=== PATIENT | male | born 1955 ===

== ENCOUNTER 2024-06-29 16:00 | Inpatient (IN) | payer OTHER ==
[~2024-06-29] VITALS: Ht 182.9 cm; Wt 115.0 kg
[2024-06-29] MEDS: ROCURONIUM BROMIDE 10 MG/ML 5 ML VIAL IVP ONE (16:10)
[2024-06-29] MEDS: ETOMIDATE 2 MG/ML 10 ML VIAL IVP ONE (16:10)
[2024-06-29 16:12] VITALS: PULSE 110; RESP 20; O2SAT 86
[2024-06-29] MEDS ORDERED: 0.9% SODIUM CHLORIDE 10 ML SYRINGE IVP PRN (16:15)
[2024-06-29 16:35] LABS: BASOPHILS % (AUTO) 0.3 % (0.0-2.0); EOSINOPHILS % (AUTO) 19.6 % (1.0-6.0); HEMATOCRIT 37.8 % (41-53); LYMPHOCYTES # (AUTO) 0.9 K/uL (1.0-4.8); LYMPHOCYTES % (AUTO) 15.5 % (22.0-44.0); MEAN CORPUSCULAR HEMOGLOBIN 28.9 pg (26.0-34.0); MEAN CORPUSCULAR HGB CONC 31.8 G/dL (31.0-37.0); MEAN CORPUSCULAR VOLUME 91 fL (80-100); MONOCYTES # (AUTO) 0.4 K/uL (0.1-1.0); MONOCYTES % (AUTO) 6.8 % (2.0-9.0); NEUTROPHILS # (AUTO) 3.3 K/uL (1.8-7.7); NEUTROPHILS % (AUTO) 57.8 % (40.0-70.0); PLATELET COUNT (AUTO) 290 K/uL (150-450); RED BLOOD CELL COUNT(AUTO) 4.16 MIL/uL (4.50-5.90); RED CELL DISTRIBUTION WIDTH 16.2 % (11.5-14.5); WHITE BLOOD COUNT (AUTO) 5.8 K/uL (4.5-11.0)
[2024-06-29 16:46] LABS: INR 1.1 (0.9-1.1); PLATELET MORPHOLOGY COMMENT LARGE PLTS PRESENT; PROTHROMBIN TIME 11.6 SEC (9.4-11.6); RBC MORPHOLOGY COMMENT NORMAL RBC MORPH
[2024-06-29 16:47] LABS: ANION GAP 21 mmol/L (8-16); CALCIUM, TOTAL 8.3 mg/dL (8.8-10.5); CARBON DIOXIDE 14 mmol/L (22-29); CHLORIDE 108 mmol/L (98-107); GLOMERULAR FILTR. RATE CALC 35 mL/min (>60); GLUCOSE,RANDOM 80 mg/dL (70-110); POTASSIUM 4.7 mmol/L (3.5-5.1); SODIUM SERUM 143 mmol/L (136-145); UREA NITROGEN, BLOOD 15 mg/dL (7-18)
[2024-06-29 16:50] VITALS: PULSE 110; RESP 30; O2SAT 85
[2024-06-29 16:59] LABS: LACTIC ACID 6.9 mmol/L (0.4-2.0)
[2024-06-29 17:02] LABS: AMMONIA 48 umol/L (11-32); TROPONIN I-HIGH SENSITIVITY 27 ng/L (<76)
[2024-06-29] MEDS: VECURONIUM BROMIDE 10 MG/VIAL IVP ONE (17:03)
[2024-06-29] MEDS: MIDAZOLAM HCL 5 MG/ML VIAL IVP ONE (17:03)
[2024-06-29] MEDS: SODIUM CHLORIDE 0.9% 2,200 ML IV ONE (17:09)
[2024-06-29 17:26] LABS: ALANINE AMINOTRANSFERASE 29 U/L (12-78); ALBUMIN 3.2 g/dL (3.4-5.0); ALKALINE PHOSPHATASE 74 U/L (46-116); ASPARTATE AMINOTRANSFERASE 46 U/L (15-37); BILIRUBIN,TOTAL 0.4 mg/dL (0.1-1.0); TOTAL PROTEIN, SERUM 7.2 g/dL (6.4-8.2)
[2024-06-29 17:36] LABS: ABG BASE EXCESS -14.3 mmol/L (-2.0-3.0); ABG CARBOXYHEMOGLOBIN 0.9 % (0.5-1.5); ABG HCO3 13.8 mmol/L (21.0-28.0); ABG OXYGEN CONTENT 17.3 mL/dL (15.0-23.0); ABG OXYGEN SATURATION 99.7 % (94.0-98.0); ABG OXYHEMOGLOBIN 97.8 % (94.0-98.0); ABG PCO2 59 mmHg (35.0-48.0); ABG PH 7.054 (7.350-7.450); ABG TOTAL HEMOGLOBIN 12.1 G/dL (13.5-17.5); SOURCE, BLOOD GAS ARTERIAL; TEMPERATURE, FAHRENHEIT, BG 107.3 FAHREN (96.0-98.6)
[2024-06-29 17:37] LABS: ALLEN TEST, BLOOD GAS POS; O2 DEVICE,BLOOD GAS VENTILATOR (ROOM AIR); PEEP,BG 5 cm H2O; PO2, ARTERIAL BG 290.3 mmHg (83.0-108.0); SITE, BLOOD GAS RT RADIAL; VT, ABG 420 ml
[2024-06-29 17:41] LABS: APPEARANCE,URINE CLEAR (CLEAR); BILIRUBIN,URINE NEGATIVE (NEGATIVE); COLOR,URINE YELLOW (YELLOW); GLUCOSE, URINE (UA) NEGATIVE (NEGATIVE); KETONES,URINE NEGATIVE (NEGATIVE); LEUKOCYTE ESTERASE ,URINE NEGATIVE (NEGATIVE); NITRATE,URINE NEGATIVE (NEGATIVE); OCCULT BLOOD,URINE LARGE (NEGATIVE); PH,URINE 5.5 (5.0-8.0); PROTEIN,URINE 30-70 mg/dL (NEGATIVE); SPECIFIC GRAVITIY, URINE 1.024 (1.003-1.030); UROBILINOGEN,URINE <=1.0 mg/dL (<=1.0)
[2024-06-29] MEDS: SODIUM CHLORIDE 0.9% 2,000 ML IV ONE (17:46)
[2024-06-29 17:57] LABS: BACTERIA,URINE Few /HPF (None Seen); RBC,URINE 51-100 /HPF (0-2); SQUAMOUS EPITHELIAL CELL,UR Rare /LPF (None Seen); WBC,URINE 0-2 /HPF (0-5)
[2024-06-29] MEDS: RINGERS SOLUTION,LACTATED 1,000 ML IV ONE (17:57)
[2024-06-29] MEDS: PROPOFOL 1000 MG/ISO-OSM 100 ML IV PRN (17:59)
[2024-06-29 18:19] LABS: ALCOHOL, URINE DRUG SCREEN POSITIVE (NEGATIVE); AMPHET/METH SCREEN,URINE NEGATIVE (NEGATIVE); BARBITURATE SCREEN, URINE NEGATIVE (NEGATIVE); BENZODIAZEPINES SCREEN,URINE POSITIVE (NEGATIVE); CANNABINOID SCREEN,URINE NEGATIVE (NEGATIVE); COCAINE SCREEN,URINE NEGATIVE (NEGATIVE); METHADONE SCREEN, URINE NEGATIVE (NEGATIVE); OPIATE SCREEN,URINE NEGATIVE (NEGATIVE); PHENCYCLIDINE SCREEN,URINE NEGATIVE (NEGATIVE)
[2024-06-29 18:25] LABS: PH,URINE DRUG SCREEN 5.5 (5.0-8.0)
[2024-06-29] MEDS: SODIUM CHLORIDE 0.9% 250 ML IV ONE (18:30)
[2024-06-29] MEDS ORDERED: ONDANSETRON HCL 4 MG/2 ML VIAL IVP PRN (18:45)
[2024-06-29 18:50] VITALS: PULSE 135; RESP 26; O2SAT 96
[2024-06-29] MEDS: CefTRIAXone 1 GM/DEXTROSE 50 ML IV ONE (18:57)
[2024-06-29 19:00] VITALS: PULSE 135; RESP 27; O2SAT 96
[2024-06-29 19:10] LABS: COVID AG,FIA SOURCE NASAL SWAB
[2024-06-29 19:13] LABS: ABG BASE EXCESS -14.4 mmol/L (-2.0-3.0); ABG CARBOXYHEMOGLOBIN 0.8 % (0.5-1.5); ABG HCO3 13.7 mmol/L (21.0-28.0); ABG METHEMOGLOBIN 0.9 % (0.0-1.5); ABG OXYGEN CONTENT 18.4 mL/dL (15.0-23.0); ABG OXYGEN SATURATION 99.9 % (94.0-98.0); ABG OXYHEMOGLOBIN 98.2 % (94.0-98.0); ABG PCO2 50 mmHg (35.0-48.0); ABG TOTAL HEMOGLOBIN 12.9 G/dL (13.5-17.5); SOURCE, BLOOD GAS ARTERIAL; TEMPERATURE, FAHRENHEIT, BG 99.3 FAHREN (96.0-98.6)
[2024-06-29 19:14] LABS: ABG PH 7.104 (7.350-7.450)
[2024-06-29 19:15] LABS: ABG A-A DIFF O2 412.4 mmHg (10-20.0); O2 DEVICE,BLOOD GAS VENTILATOR (ROOM AIR); PO2, ARTERIAL BG 249.9 mmHg (83.0-108.0); SITE, BLOOD GAS RT BRACHIAL
[2024-06-29 19:16] LABS: PEEP,BG 5 cm H2O; SPONTANEOUS VT, BG 424 ml; VT, ABG 420 ml
[2024-06-29 19:31] LABS: SARS-COV2 (COVID) ANTIGEN,FIA Negative (Negative)
[2024-06-29] MEDS ORDERED: MIDAZOLAM HCL 100 MG in SODIUM CHLORIDE 0.9% 180 ML IV PRN (19:45)
[2024-06-29] MEDS: PEG 400/HYPROMELLOSE/GLYCERIN 15 ML OPHTHALMIC SOLUTION OU SCH (20:04)
[2024-06-29] MEDS: FentaNYL CIT 1000MCG/0.9% NACL 100 ML IV PRN (20:14)
[2024-06-29] MEDS ORDERED: LORazepam 2 MG TABLET PO PRN (21:00)
[2024-06-29] MEDS: RINGERS SOLUTION,LACTATED 500 ML IV ONE (21:00)
[2024-06-29] MEDS: SODIUM BICARBONATE [ADULT] 8.4% 50 MEQ/50 ML SYRINGE IVP ONE (21:10)
[2024-06-29] MEDS ORDERED: PERTUSS(ACELL),DIPH,TET/PF 0.5 ML SYRINGE [ADULT] IM. ONE (21:15)
[2024-06-29 22:00] LABS: CALCIUM, TOTAL 7.9 mg/dL (8.8-10.5); CREATININE 1.71 mg/dL (0.60-1.30); POTASSIUM 4.5 mmol/L (3.5-5.1)
[2024-06-29 22:10] VITALS: PULSE 87; RESP 28; O2SAT 98
[2024-06-29] MEDS ORDERED: INSULIN LISPRO 100 UNITS/ML SQ PRN (22:15)
[2024-06-29] MEDS ORDERED: DEXTROSE 50%-WATER 25 GM/50 ML SYRINGE IVP PRN (22:15)
[2024-06-29 23:00] VITALS: BP 104/62; PULSE 90; RESP 26; TEMP 98; O2SAT 99
[2024-06-29] MEDS: PERMETHRIN 5% 60 GM CREAM TP ONE (23:07)
[2024-06-29] MEDS: MAGNESIUM SULFATE 2 GM, MVI, ADULT NO.1 WITH VIT K 10 ML, THIAMINE 100 MG, FOLIC ACID 1... IV ONE (23:07)
[2024-06-29] MEDS: LevETIRAcetam 1,000 MG in DEXTROSE 5%-WATER 100 ML IV ONE (23:07)
[2024-06-29] MEDS: CHLORHEXIDINE GLUCONATE 2% TOWELETTE [2'S/6'S] TP SCH (23:08)
[2024-06-30] VITALS (16 sets, daily range): BP systolic 82–103; BP diastolic 58–69; PULSE 77–87; RESP 14–30; TEMP 97.2–99.2; O2SAT 96–100
[2024-06-30] MEDS: PIPERONYL BUTOXIDE/PYRETHRINS 120 ML SHAMPOO TP ONE (00:10)
[2024-06-30] MEDS: BACITRACIN 0.9 GM PACKET OINTMENT TP ONE (02:28)
[2024-06-30] MEDS: SILVER SULFADIAZINE 1% 25 GM CREAM TP ONE (02:29)
[2024-06-30] MEDS: PIPERACILLIN/TAZO 3.375 GM/D5W 50 ML IV SCH (02:29)
[2024-06-30] MEDS: RINGERS SOLUTION,LACTATED 500 ML IV ONE (03:48)
[2024-06-30 05:06] LABS: GLUCOMETER DEV NAME(LOC) ICU.S6; GLUCOSE,POINT OF CARE 121 MG/DL (70-110)
[2024-06-30] MEDS ORDERED: PROPOFOL 1000 MG/ISO-OSM 100 ML ONE (06:19)
[2024-06-30] MEDS: PROPOFOL 1000 MG/ISO-OSM 100 ML IV PRN (06:21)
[2024-06-30 06:25] LABS: CREATININE,URINE RANDOM 62.9 mg/dL (30.0-125.0)
[2024-06-30] MEDS ORDERED: LORazepam 2 MG TABLET PO PRN (07:00)
[2024-06-30] MEDS: LORazepam 2 MG TABLET PO SCH (08:12)
[2024-06-30 09:44] LABS: HEMATOCRIT 34.7 % (41-53); MEAN CORPUSCULAR HEMOGLOBIN 28.9 pg (26.0-34.0); MEAN CORPUSCULAR HGB CONC 31.8 G/dL (31.0-37.0); MEAN CORPUSCULAR VOLUME 91 fL (80-100); PLATELET COUNT (AUTO) 184 K/uL (150-450); RED BLOOD CELL COUNT(AUTO) 3.82 MIL/uL (4.50-5.90); RED CELL DISTRIBUTION WIDTH 16.1 % (11.5-14.5); WHITE BLOOD COUNT (AUTO) 6.4 K/uL (4.5-11.0)
[2024-06-30] MEDS ORDERED: LORazepam 2 MG/ML VIAL IVP PRN (09:45)
[2024-06-30 09:56] LABS: ABG BASE EXCESS -2.5 mmol/L (-2.0-3.0); ABG CARBOXYHEMOGLOBIN 0.5 % (0.5-1.5); ABG HCO3 22.4 mmol/L (21.0-28.0); ABG METHEMOGLOBIN 0.3 % (0.0-1.5); ABG OXYGEN CONTENT 16.4 mL/dL (15.0-23.0); ABG OXYGEN SATURATION 98.8 % (94.0-98.0); ABG PCO2 43 mmHg (35.0-48.0); ABG TOTAL HEMOGLOBIN 11.7 G/dL (13.5-17.5); SOURCE, BLOOD GAS ARTERIAL; TEMPERATURE, FAHRENHEIT, BG 97.3 FAHREN (96.0-98.6)
[2024-06-30 09:57] LABS: ABG A-A DIFF O2 173.5 mmHg (10-20.0); ALLEN TEST, BLOOD GAS Positive; O2 DEVICE,BLOOD GAS VENTILATOR (ROOM AIR); PEEP,BG 5 cm H2O; PO2, ARTERIAL BG 135.7 mmHg (83.0-108.0); SITE, BLOOD GAS RT RADIAL; SPONTANEOUS VT, BG 416 ml
[2024-06-30 09:58] LABS: VT, ABG 420 ml
[2024-06-30 10:11] LABS: BAND NEUTROPHILS % (MANUAL) 1 % (0-5); EOSINOPHILS % (MANUAL) 1 % (1-6); LYMPHOCYTES % (MANUAL) 10 % (22-44); MONOCYTES % (MANUAL) 5 % (2-9); SEGMENTED NEUTROPHILS % 83 % (40-70); TOTAL CELLS COUNTED 100
[2024-06-30 10:14] LABS: RBC MORPHOLOGY COMMENT NORMAL RBC MORPH
[2024-06-30 10:21] LABS: GLUCOMETER DEV NAME(LOC) ICUN.5; GLUCOSE,POINT OF CARE 104 MG/DL (70-110)
[2024-06-30 10:22] LABS: CALCIUM, TOTAL 7.2 mg/dL (8.8-10.5); CREATININE 1.43 mg/dL (0.60-1.30); MAGNESIUM 2.8 mg/dL (1.80-2.40); POTASSIUM 4.1 mmol/L (3.5-5.1)
[2024-06-30] MEDS: DEXTROSE 5%-WATER 1,000 ML IV ONE (10:55)
[2024-06-30] MEDS: FentaNYL CIT 1000MCG/0.9% NACL 100 ML IV PRN (12:28)
[2024-06-30] MEDS: VANCOMYCIN 1.5 GM/WATER(PEG) 300 ML IV ONE (15:11)
[2024-06-30] MEDS: HEPARIN SODIUM,PORCINE 5,000 UNITS/ML VIAL SQ SCH (23:40)
[2024-07-01] VITALS (13 sets, daily range): BP systolic 91–128; BP diastolic 50–65; PULSE 72–96; RESP 26–28; TEMP 98.2–99.9; O2SAT 96–100
[2024-07-01 01:25] LABS: GLUCOMETER DEV NAME(LOC) ICU.S6; GLUCOSE,POINT OF CARE 123 MG/DL (70-110)
[2024-07-01 06:32] LABS: BASOPHILS % (AUTO) 0.2 % (0.0-2.0); EOSINOPHILS % (AUTO) 3.9 % (1.0-6.0); HEMATOCRIT 37.6 % (41-53); HEMOGLOBIN 11.9 g/dL (13.5-17.5); LYMPHOCYTES # (AUTO) 0.4 K/uL (1.0-4.8); LYMPHOCYTES % (AUTO) 4.9 % (22.0-44.0); MEAN CORPUSCULAR HEMOGLOBIN 29.2 pg (26.0-34.0); MEAN CORPUSCULAR HGB CONC 31.7 G/dL (31.0-37.0); MEAN CORPUSCULAR VOLUME 92 fL (80-100); MONOCYTES # (AUTO) 0.5 K/uL (0.1-1.0); NEUTROPHILS # (AUTO) 7.1 K/uL (1.8-7.7); PLATELET COUNT (AUTO) 158 K/uL (150-450); RED BLOOD CELL COUNT(AUTO) 4.08 MIL/uL (4.50-5.90); RED CELL DISTRIBUTION WIDTH 16.8 % (11.5-14.5); WHITE BLOOD COUNT (AUTO) 8.4 K/uL (4.5-11.0)
[2024-07-01 07:01] LABS: GLUCOMETER DEV NAME(LOC) ICU.S6; GLUCOSE,POINT OF CARE 104 MG/DL (70-110)
[2024-07-01 07:14] LABS: LACTIC ACID 1.9 mmol/L (0.4-2.0)
[2024-07-01 07:48] LABS: CALCIUM, TOTAL 7.4 mg/dL (8.8-10.5); CREATININE 1.64 mg/dL (0.60-1.30); POTASSIUM 4.1 mmol/L (3.5-5.1)
[2024-07-01] MEDS: VANCOMYCIN 1GM/WATER(PEG/NADA) 200 ML IV SCH (07:58)
[2024-07-01] MEDS ORDERED: SODIUM CHLORIDE 0.9% 250 ML IV ONE (17:03)
[2024-07-01] MEDS: SODIUM CHLORIDE 0.9% 1,000 ML IV ONE (19:46)
[2024-07-01] MEDS: ACETAMINOPHEN 325 MG TABLET PO PRN (20:06)
[2024-07-01 21:56] LABS: GLUCOMETER DEV NAME(LOC) ICUN.5; GLUCOSE,POINT OF CARE 104 MG/DL (70-110)
[2024-07-02] MEDS ORDERED: LORazepam 1 MG TABLET PO PRN (07:00)
[2024-07-02] MEDS ORDERED: LORazepam 1 MG TABLET PO SCH (09:00)
[2024-07-02 09:21] LABS: GLUCOMETER DEV NAME(LOC) ICU.S6; GLUCOSE,POINT OF CARE 85 MG/DL (70-110)
[2024-07-03] MEDS ORDERED: LORazepam 1 MG TABLET PO PRN (07:00)
== END 2024-06-30 21:13 | disposition short-term general hospital (02) | DRG 853 ==
LOC: EDBD 16:00 → EMS 16:00 → EDH 18:29 → ICU 22:30
PROVIDERS: ADMIT Internal Medicine; ATTEND Internal Medicine
PROC: 5A1945Z Respiratory Ventilation, 24-96 Consecutive Hours (ICD-10-PCS; principal; 2024-06-29)
PROC: 0BH17EZ Insertion of Endotracheal Airway into Trachea, Via Natural or Artificial Opening (ICD-10-PCS; 2024-06-29)
PROC: 0JB80ZZ Excision of Abdomen Subcutaneous Tissue and Fascia, Open Approach (ICD-10-PCS; 2024-06-29)
DX: A41.9 Sepsis, unspecified organism (principal); G92.8 Other toxic encephalopathy; J96.00 Acute respiratory failure, unspecified whether with hypoxia or hypercapnia; J69.0 Pneumonitis due to inhalation of food and vomit; N17.9 Acute kidney failure, unspecified; E87.21 Acute metabolic acidosis; T67.01XA Heatstroke and sunstroke, initial encounter; E87.0 Hyperosmolality and hypernatremia; M62.82 Rhabdomyolysis; Z59.00 Homelessness unspecified; Z99.11 Dependence on respirator [ventilator] status; F10.129 Alcohol abuse with intoxication, unspecified; R65.20 Severe sepsis without septic shock; Z20.822 Contact with and (suspected) exposure to COVID-19; R56.9 Unspecified convulsions; B85.1 Pediculosis due to Pediculus humanus corporis; T21.22XA Burn of second degree of abdominal wall, initial encounter; X30.XXXA Exposure to excessive natural heat, initial encounter; Y93.89 Activity, other specified; Y92.89 Other specified places as the place of occurrence of the external cause; Y99.8 Other external cause status
CPT/HCPCS: 36600; 51702; 70450; 71045; 80048; 80053; 80307; 81001; 82140; 82550; 82570; 82805; 82962; 83605; 83690; 83735; 83880; 84145; 84300; 84484; 85025; 85610; 87040; 87077; 87081; 87205; 87481; 90715; 93005; 94002; 94003; 99285; G0480; J0696; J0712; J1644; J2250; J2543; J2704; J3010; J3411; J3475; J3490; J7030; J7050; J7060; J7120; 36415-L1; 36415-TC